=== PATIENT | male | born 1955 | race Caucasian/White ===

== ENCOUNTER 2019-05-14 19:00 | Emergency (ER) | payer OTHER, SELFPAY ==
[2019-05-14] VITALS (11 sets, daily range): BP systolic 141–171; BP diastolic 82–113; PULSE 77–102; RESP 14–21; TEMP 36.6; O2SAT 94–100; BMI 28.1
[2019-05-14] MEDS: Glucagon 1 MG/ML Syringe IV (19:44)
--- NOTE | 2019-05-14 20:06 | CON.PCM_ITS ---
Reason for Consult Date of Consultation: 05/14/19 History of Present Illness: The patient is a 63 year old M presented to the ER due to odontophagia questionable foreign body in his esophagus. Patient states that 5 PM today he had a hard shell taco and then took 4 of his pills when he went to go back in eats more of the hard shell tacos he had pain in his chest nausea and vomiting states he can swallow saliva but it does make the pain worse. Patient denies any history of GERD or reflux symptoms. Patient did have another issue with this in 2017 where he was transferred to [facility] unsure of what they did or found exactly patient thought he was told he has a hiatal hernia. Past Medical History Allergies No Known Allergies Allergy (Verified 07/20/16 20:57) Home Medications: Ambulatory Orders Medication Instructions Recorded Aspirin [Aspirin, Baby] 81 mg PO DAILY@0800 07/20/16 Atorvastatin Calcium [Lipitor] 40 mg PO QHS 07/20/16 Glipizide [Glucotrol Xl] 10 mg PO BID 07/20/16 Insulin Glargine,Hum.rec.anlog 28 unit SQ DAILY 07/20/16 [Basaglar Kwikpen U-100] Lisinopril [Zestril] 10 mg PO DAILY 07/20/16 Loratadine [Claritin] 10 mg PO DAILY 07/20/16 Metformin HCl 1,500 mg PO DAILY 07/20/16 Multivitamin [Multiple Vitamins] 1 each PO DAILY 07/20/16 Sitagliptin Phosphate [Januvia] 100 mg PO DAILY 07/20/16 Surgical History: tonsillectomy, - - Left toe surgery Psychiatric History: No pertinent psych hx Lives: Spouse/ Significant Other Smoking Status: Never smoker - *Family History Maternal History Items: No pertinent history Review of Systems Constitutional: Reports: Anorexia Eyes: Denies: Blurred vision Cardiovascular: Reports: Chest Pain Respiratory: Denies: Shortness of breath at rest Gastrointestinal: Reports: Nausea, Vomiting. Denies: Abdominal Pain - Physical Exam Vitals/I&O's: Vital Signs Temp Pulse Resp BP Pulse Ox 97.8 F 77 18 153/92 H 99 05/14/19 19:01 05/14/19 19:48 05/14/19 19:48 05/14/19 19:48 05/14/19 19:48 Oxygen Delivery Method Room Air Weight: 225 lb Body Mass Index (BMI) 28.1 General: Alert, Oriented x3, Cooperative HEENT: Atraumatic Lungs: Normal air movement Cardiovascular: Regular rate Abdomen: Soft, Non Tender, Non-Distended Extremities: No clubbing, No cyanosis, No edema Neurological: Cranial nerves II-XII grossly intact Psych/Mental Status: Normal Affect Assessment/Plan 63-year-old male with odynophagia and probable esophageal foreign body 1.I have discussed the above with the patient. I have offered the patient EGD for evaluation. I have explained the risks/benefits of the procedure and described the procedure. I have discussed the risks with the patient, including but not limited to: infection, bleeding, perforation of the GI tract requiring emergency surgery, inability to complete the procedure, requiring transfer to tertiary care facility with GI, injury to any internal organs, complications of anesthesia, etc. - the patient understands and agrees to proceed. I have answered all the patient's questions to the patient's satisfaction and the patient has no further questions. Jill Tariq M.D. Pager: [phone] [facility] [address] [place] [address], [address] [place] [address] Office: [phone]
--- NOTE | 2019-05-14 20:22 | ED.VISSUMM ---
- ER Visit Summary Date of Service: 05/14/19 Chief Complaint: Foreign body History of Present Illness: The patient is a 63 M with a foreign body in his throat. He is unable to swallow starting around 5 PM today. This was after taking his pills. He had also been eating hard tacos. This happened before and he was treated at an outside hospital. No other complaints. Physical Examination: Afebrile vital signs unremarkable. Airway intact. Unremarkable. Test Results: None indicated Emergency Department Course and Treatment: Patient treated with glucagon. He tried drinking cola through a straw. These were unsuccessful. He was discussed with Dr. noguera who will see him in the ED. Patient gave consent for procedural sedation, EGD with retrieval. He was treated with propofol 70 mg. He was placed on the monitor. No desaturations or abnormal vital signs. He tolerated this well. Patient had some irritation. Foreign body had resolved. Surgery advised follow-up in 2 to 3 weeks. PPI and Carafate for 1 week. Return for any new or worsening issues. Treatment Plan: As above Disposition: Discharge Impression: Esophageal foreign body This note was generated with [employer] dictation software. It may contain incorrect words, spelling, and punctuation that were not noted in review of the chart prior to signing ED Disposition - Plan for ED Patient: Referrals: Yariel Elliott MD [Primary Care Provider] -
[2019-05-14] MEDS: Propofol 200 MG/20 ML Vial IV BOLUS (20:39)
--- NOTE | 2019-05-14 20:39 | ED.DEP ---
ED Disposition - Plan for ED Patient: Instructions: ED Foreign Body Esophageal Rslv Prescriptions: Sucralfate [Carafate] 1 gm PO 4X/DAY #28 tab Prescription Printed Omeprazole 20 mg PO BID #14 tablet.dr Prescription Printed Referrals: Jill Tariq MD [STAFF PHYSICIAN] - 1-2 Weeks
--- NOTE | 2019-06-06 12:24 | OP.EGD_ITS ---
Patient Name: Fidel Butler Procedure Date: 05/14/2019 8:24 PM Date of : 1955 Age: 63 Procedure: Upper GI endoscopy Indications: Foreign body in the esophagus Providers: Jill Tariq MD Medicines: Monitored Anesthesia Care Patient Profile: This is a 63 year old male. Complications: No immediate complications. Procedure: Pre-Anesthesia Assessment: - Prior to the procedure, a History and Physical was performed, and patient medications and allergies were reviewed. The patient's tolerance of previous anesthesia was also reviewed. The risks and benefits of the procedure and the sedation options and risks were discussed with the patient. All questions were answered, and informed consent was obtained. Prior Anticoagulants: The patient has taken aspirin, last dose was day of procedure. ASA Grade Assessment: per ER physician. After reviewing the risks and benefits, the patient was deemed in satisfactory condition to undergo the procedure. After obtaining informed consent, the endoscope was passed under direct vision. Throughout the procedure, the patient's blood pressure, pulse, and oxygen saturations were monitored continuously. The gastroscope was introduced through the mouth, and advanced to the second part of duodenum. The upper GI endoscopy was accomplished without difficulty. The patient tolerated the procedure well. Scope In: 8:30:43 PM Scope Out: 8:33:59 PM Total Procedure Duration Time 0 hours 3 minutes 16 seconds Findings: The Z-line was found 40 cm from the incisors. Moderate erythema was found at the lower esophageal sphincter. A medium amount of food (residue) was found in the gastric fundus. The examined duodenum was normal. The cardia and gastric fundus were normal on retroflexion. A small sliding hiatal hernia was present. Impression: - Z-line, 40 cm from the incisors. - Erythema at the lower esophageal sphincter. - A medium amount of food (residue) in the stomach. - Normal examined duodenum. - Small sliding hiatal hernia. - No specimens collected. Recommendation: - Discharge patient to home. - Resume previous diet. - Use Protonix (pantoprazole) 40 mg PO daily. - Use sucralfate tablets 1 gram PO QID for 1 week. - Continue present medications. Procedure Code(s): --- Professional --- 89177, Esophagogastroduodenoscopy, flexible, transoral; diagnostic, including collection of specimen(s) by brushing or washing, when performed (separate procedure) Diagnosis Code(s): --- Professional --- K22.8, Other specified diseases of esophagus T18.108A, Unspecified foreign body in esophagus causing other injury, initial encounter CPT copyright 2017 [employer]. All rights reserved. The codes documented in this report are preliminary and upon rental boats caretaker review may be revised to meet current compliance requirements. MD Jill Brandon MD 05/14/2019 8:47:28 PM This report has been signed electronically. Number of Addenda: 0 Note Initiated On: 05/14/2019 8:24 PM
--- NOTE | 2019-06-06 12:25 | OP.CCLET_ITS ---
06/06/2019 Yariel Elliott Re : Upper GI endoscopy procedure for Fidel Herring Earl This procedure was performed on Tuesday, May 14, 2019. My impressions and recommendations are as follows: Impressions : - Z-line, 40 cm from the incisors. - Erythema at the lower esophageal sphincter. - A medium amount of food (residue) in the stomach. - Normal examined duodenum. - Small sliding hiatal hernia. - No specimens collected. Recommendations : - Discharge patient to home. - Resume previous diet. - Use Protonix (pantoprazole) 40 mg PO daily. - Use sucralfate tablets 1 gram PO QID for 1 week. - Continue present medications. My findings are described in the full procedure note, which is enclosed. If I can be of further assistance, please feel free to contact me at Doctor phone number(s): , Work: . Sincerely, MD Jill Brandon MD 05/14/2019 8:47:28 PM This report has been signed electronically.
== END 2019-05-14 21:15 | disposition home or self-care (01) ==
PROVIDERS: Surgery; Emergency Provider Emergency Medicine; PCP Family Medicine
PROC: 0DJ08ZZ Inspection of Upper Intestinal Tract, Via Natural or Artificial Opening Endoscopic (ICD-10-PCS; CPT 43235; principal; 2019-05-14 20:30)
DX: R13.10 Dysphagia, unspecified (principal); T18.108A Unspecified foreign body in esophagus causing other injury, initial encounter; K22.8 Other specified diseases of esophagus; E11.9 Type 2 diabetes mellitus without complications; I10 Essential (primary) hypertension; E78.00 Pure hypercholesterolemia, unspecified; Z79.82 Long term (current) use of aspirin; Z79.4 Long term (current) use of insulin
CPT/HCPCS: 43235; 96374; 99284; J7030; A4216; J1610

== ENCOUNTER 2020-05-22 14:57 | Outpatient (RCR) | payer OTHER, SELFPAY ==
[2019-05-14 19:01] VITALS: BMI 28.1
== END 2020-07-15 23:59 ==
LOC: IMMUN 14:57
PROVIDERS: PCP Family Medicine; Referring Provider Family Medicine; Visit Provider Family Medicine
DX: Z23 Encounter for immunization (principal)
CPT/HCPCS: 0001A; 0002A; 91300

== ENCOUNTER 2022-12-20 07:00 | Outpatient (RCR) | payer OTHER, SELFPAY ==
--- NOTE | 2022-12-03 15:01 | HP.PTEVAL ---
Patient's Visit Information Visit Information Visit Information: MYLA CONROY Jr. is a 67 year old M referred to Physical Therapy by Dr. Yariel Elliott MD with a diagnosis of Radicular pain L UE.. Date of Evaluation: 12/03/22 Physical Therapist: Etienne Jacobo, DPT, OCS, CSCS Visit Plan Frequency: 2-3x /Week Duration: 2-4 Weeks Plan: 2-3x/week for 2-4 weeks for 1. MH and STM to L UT and lev scap, DTR 2. stretch L UT and lev scap, PROM extension and retraction and mobs as needed cervical spine 3. strength posture and B RC and neck Subjective Subjective: L sided shoulder pain for long time, insidious for more than a month. Shoulder to hand, L neck. [id number] on R sided. has injury as a teen but nothing lately. Pain is fairly constant. Hard to get comfortable. Has to keep moving. No [place]. Tingling in L arm. No numbness. Sleep is interrupted as it is hard to sleep on L side. 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 Moving is better. L handed driving bothers him. Pain L shoulder, arm, neck: Pain Intensity (Out of 10): 3 Pain Intensity Range: 0, 1 and 8 Comment: 8 overworked Objective Objective: Walks I and safely back to PT I. Trasnfers I, Tends to lean R when sitting. Good balance with ambulation and standing Cervical AROM is limited in retraction mod and ext to 34 degrees and both are painful rotations ar 45 and not painful, SB 15 and not painful. Scap aROM WFL but painful L UT. shoulder and elbow and wrist AROM but L shoulder hurts slightly with LLA flexion to end range. Also end range er slightly painful max tender to touch in L UT and lev scap insertion. jumps off table slightly. reflexes 2/3 bi and tri Sensation UE WNL to gross light touch. strength is symmetrical and no myotomal problems in UE. 4/5. - c/s compression but OP ret, ext painful. L arm feels better behind head. Balance/Special Test Scores Quick DASH Score: 20.4525 Goals Goal 1:: Abolish tenderness L scap UT, lev scap Goal Time Frame: 2-4 Weeks Goal 2:: AROM cervical spine retraction to neutral and comfortable and extension to 50. Goal Time Frame: 2-4 Weeks Goal 3:: Patient feel overall pain level 80% better and manageable with HEP Goal Time Frame: 2-4 Weeks Goal 4:: quickdash score 15 or better Goal Time Frame: 2-4 Weeks Rehabilitation Potential Physical Therapy Diagnosis: Radicualr pain L ue and shoulder limiting function and comfort. Rehabilitation Potential: Fair Anticipated Interventions Patient/Client Instruction: Educate patient on: Condition and Plan of Care For the Purpose of:: To decrease pain, To increase ROM, To improve nutrient delivery to tissue and To improve muscle performance and motor function Therapeutic Exercise to Include: Strength training, Postural training, Flexibilty training, Passive ROM and Active ROM For the Purpose of:: To decrease pain, To increase ROM, To improve nutrient delivery to tissue, To improve muscle performance and motor function, To increase tolerance to activity/condition/position and To improve ability of physical actions for home/community/work/leisure Manual Therapy Techniques to Include: Petrissage, Mobilization, Passive ROM and Soft tissue mobilization For the Purpose of:: To decrease pain, To improve nutrient delivery to tissue, To improve muscle performance and motor function and To increase tolerance to activity/condition/position TENS: Yes Thermo therapy (hot pack): Yes For the Purpose of:: To decrease pain, To increase ROM and To improve nutrient delivery to tissue Text: Thank you for the opportunity to evaluate your patient. For Medicare and Medicare HMO plans, please review the plan of care and approve it. It will need to be FAXED BACK to us at [phone] for Medicare purposes. For Medicare only, by signing this I certify the plan of care. Please let me know if there are questions or concerns regarding this plan of care. Physician Signature: Date:
--- NOTE | 2022-12-20 07:21 | HP.PTREVAL ---
Re-Evaluation Intro: Dr. Yariel Elliott MD, It has been my pleasure to treat MYLA CONROY Jr. over the last 5 visits for Radicular pain L UE.. Please see the progress note below for an update on the physical therapy plan of care! Subjective Subjective: No pain over weekend maybe 02/16. Leaves raking Tuesday morning. Driving L handed. No f/u with doctor. Objective Objective/Function: 60 degrees extension is much improved. Tenderness is cervical paraspinals c67 and more medial than previously. Mild tenderness today. Pt much improved with subjective and feels like he can manage at home with massage from as massage has helped him the most. Plan Plan Plan: f/u 3 weeks if needed or call prior, Consider [facility], , US strength if pain returns. Balance/Gait/Functional tests Balance/Special Test Scores Quick DASH Score: 20.4525 Goals Goals Goal 1:: Abolish tenderness L scap UT, lev scap Goal Time Frame: 2-4 Weeks Goal Progress: Progressing Goal 2:: AROM cervical spine retraction to neutral and comfortable and extension to 50. Goal Time Frame: 2-4 Weeks Goal Progress: 60% Goal 3:: Patient feel overall pain level 80% better and manageable with HEP Goal Time Frame: 2-4 Weeks Goal Progress: Goal Met Goal 4:: quickdash score 15 or better Goal Time Frame: 2-4 Weeks Goal Progress: Progressing Anticipated Interventions Anticipated Interventions Patient/Client Instruction: Educate patient on: Condition and Plan of Care For the Purpose of:: To decrease pain, To increase ROM, To improve nutrient delivery to tissue and To improve muscle performance and motor function Therapeutic Exercise to Include: Strength training, Postural training, Flexibilty training, Passive ROM and Active ROM For the Purpose of:: To decrease pain, To increase ROM, To improve nutrient delivery to tissue, To improve muscle performance and motor function, To increase tolerance to activity/condition/position and To improve ability of physical actions for home/community/work/leisure Manual Therapy Techniques to Include: Petrissage, Mobilization, Passive ROM and Soft tissue mobilization For the Purpose of:: To decrease pain, To improve nutrient delivery to tissue, To improve muscle performance and motor function and To increase tolerance to activity/condition/position TENS: Yes Thermo therapy (hot pack): Yes For the Purpose of:: To decrease pain, To increase ROM and To improve nutrient delivery to tissue Re-Evaluation Ending Re-evaluation ending: Please do not hesitate to contact me at [phone] by phone or if you have questions or concerns regarding this new plan of care! Sincerely, Etienne Jacobo, DPT, OCS, CSCS
--- NOTE | 2023-02-17 13:17 | HP.PT.NRP ---
Patient Information Patient Information: MYLA CONROY Jr. was seen in my office for initial evaluation on 12/03/22. The following Plan of Care was established for this patient: POC Established Initial Frequency: 2-3x /Week Initial Duration: 2-4 Weeks Anticipated Interventions Patient/Client Instruction: Educate patient on: Condition and Plan of Care For the Purpose of:: To decrease pain, To increase ROM, To improve nutrient delivery to tissue and To improve muscle performance and motor function Therapeutic Exercise to Include: Strength training, Postural training, Flexibilty training, Passive ROM and Active ROM For the Purpose of:: To decrease pain, To increase ROM, To improve nutrient delivery to tissue, To improve muscle performance and motor function, To increase tolerance to activity/condition/position and To improve ability of physical actions for home/community/work/leisure Manual Therapy Techniques to Include: Petrissage, Mobilization, Passive ROM and Soft tissue mobilization For the Purpose of:: To decrease pain, To improve nutrient delivery to tissue, To improve muscle performance and motor function and To increase tolerance to activity/condition/position TENS: Yes Thermo therapy (hot pack): Yes For the Purpose of:: To decrease pain, To increase ROM and To improve nutrient delivery to tissue Last Seen Last Seen: This patient was last seen in our office 12/20/22. Pertinent comments regarding their Physical therapy will appear below: Pt seen 5 visits of POC and was 90% better. He was to f/u 3 weeks later but did not schedule or attend. At this point, it has been over 6 weeks and I will discontinue from my care. At this point I will be discontinuing this patient from physical therapy. I would be happy to see this patient again in the future if found appropriate by the physician. Thank you! Etienne Jacobo, DPT, OCS, CSCS Balance/Gait/Functional tests Balance/Special Test Scores Quick DASH Score: [phone]
== END 2022-12-20 19:00 | disposition home or self-care (01) ==
LOC: PT 07:00
PROVIDERS: PCP Family Medicine; Referring Provider Family Medicine; Visit Provider Family Medicine
DX: M79.602 Pain in left arm
CPT/HCPCS: 97110; 97140; 97161; 97530

== ENCOUNTER 2023-01-17 11:10 | Emergency (ER) | payer OTHER, SELFPAY ==
[2023-01-17 11:11] VITALS: BP 123/86; PULSE 72; RESP 18; TEMP 35.1; O2SAT 100; BMI 26.9
--- NOTE | 2023-01-17 11:44 | RAD_ITS ---
STUDY: X-RAY - LEFT KNEE REASON FOR EXAM: Male, 67 years old. Pain TECHNIQUE: 4 view(s) of the knee. COMPARISON: None. FINDINGS: Normal visualized distal femur. Normal visualized proximal tibia and fibula. Normal proximal tibiofibular articulation. Normal medial femorotibial compartment. Normal lateral femorotibial compartment. Normal patellofemoral articulation. The soft tissue structures are unremarkable. RAD/Knee 4 or More Views IMPRESSION: Normal x-ray examination of the knee. Electronically Signed: Bridger Ortiz MD at 12:40 EST ,
--- NOTE | 2023-01-17 11:44 | RAD_ITS ---
STUDY: X-RAY - LEFT HUMERUS REASON FOR EXAM: Male, 67 years old. Pain following recent fall. TECHNIQUE: 3 view(s) of the humerus. COMPARISON: None. FINDINGS: Normal visualized humerus. There is no demonstrated fracture or osseous destructive process. There is no demonstrated soft tissue abnormality. RAD/Humerus min 2 Views IMPRESSION: Normal x-ray examination of the humerus. Electronically Signed: Bridger Ortiz MD at 12:37 EST ,
--- NOTE | 2023-01-17 11:46 | RAD_ITS ---
STUDY: X-RAY - LEFT SHOULDER REASON FOR EXAM: Male, 67 years old. Pain following a fall. TECHNIQUE: 4 view(s) of the shoulder. COMPARISON: None. FINDINGS: Normal glenohumeral articulation. There is degenerative arthrosis of the acromioclavicular joint without inferior osseous spur formation. Normal acromion. There is a 1.5 cm x 0.7 cm well-corticated bony fragment just inferior to the left acromion clavicular joint. This most likely represents an old avulsion fracture. Normal humeral head and visualized proximal humerus. The soft tissue structures are unremarkable. Normal visualized pulmonary apex. RAD/Shoulder min 2 Views IMPRESSION: Mild degree of the degenerative changes of the acromioclavicular joint. Findings suggestive of an old avulsion fracture along the undersurface of the left acromioclavicular joint. Electronically Signed: Bridger Ortiz MD at 12:39 EST ,
--- NOTE | 2023-01-17 11:46 | EX.ED.DYSGE1 ---
HPI <JOSE ALFREDO Arnold - Last Filed: 01/17/23 13:11> History of Present Illness Chief Complaint: Fall Narrative Narrative: Patient tripped on the sidewalk and fell catching himself with his left arm and on both knees. His knees are scraped and painful but he was able to stand and ambulate. Denies head injury or LOC. He states he feels nauseated now. Triage note states he is confused but family and the patient deny this. PFSH <JOSE ALFREDO Arnlod - Last Filed: 01/17/23 13:11> [facility] Home Medications aspirin 81 mg chewable tablet 81 mg PO DAILY@0800 07/20/16 [History Last Taken Unknown] atorvastatin 40 mg tablet 40 mg PO QHS 07/20/16 [History Last Taken Unknown] glipizide 10 mg tablet, extended release 24 hr (Glucotrol XL) 10 mg PO BID 07/20/16 [History Last Taken Unknown] insulin glargine 100 unit/mL (3 mL) subcutaneous pen (Basaglar KwikPen U-100 Insulin) 28 unit SQ DAILY 07/20/16 [History Last Taken Unknown] lisinopril 10 mg tablet 10 mg PO DAILY 07/20/16 [History Last Taken Unknown] loratadine 10 mg tablet (Allergy Relief (loratadine)) 10 mg PO DAILY 07/20/16 [History Last Taken Unknown] metformin 500 mg tablet 1,500 mg PO DAILY 07/20/16 [History Last Taken Unknown] multivitamin (Multiple Vitamins tablet) 1 ea PO DAILY 07/20/16 [History Last Taken Unknown] sitagliptin phosphate 100 mg tablet (Januvia) 100 mg PO DAILY 07/20/16 [History Last Taken Unknown] omeprazole 20 mg tablet,delayed release 20 mg PO BID ##14 05/14/19 [Rx Last Taken Unknown] sucralfate 1 gram tablet 1 gm PO 4X/DAY #28 tabs 05/14/19 [Rx Last Taken Unknown] Allergy/AdvReac Type Severity Reaction Status Date / Time No Known Allergies Allergy Verified 01/17/23 11:11 Social History Smoking Status: Never smoker ROS <JOSE ALFREDO Arnold - Last Filed: 01/17/23 13:11> ROS ED ROS Narrative CVS: Negative for chest pain, syncope. Respiratory: Negative for shortness of breath. GI: Positive for nausea, negative for vomiting. Neuro: Negative for headache, motor/sensory dysfunction. Skin: Positive for knee abrasions. EXAM <JOSE ALFREDO Arnold - Last Filed: 01/17/23 13:11> Physical Exam Narrative Exam Narrative: CONST: Patient sitting in no acute distress. EYES: Normal inspection. Head: Head atraumatic normocephalic. NECK: Normal inspection. No midline spinal tenderness, no step off or crepitus. RESP: No respiratory distress, CTAB. Chest wall nontender. CVS: Regular rate and rhythm, no murmur, no gallop. Back: Normal inspection, no midline tenderness. SKIN: Small abrasions on both knees. EXTREMITIES: Normal appearance, tender to palpation left proximal humerus/deltoid area, no deformity or crepitus. Patient will not move the shoulder due to pain but he has full passive range of motion. 5/5 strength in elbow flexion/extension wrist and certified wellness program coordinator strength. Normal motor and sensory function median radial and ulnar distributions. No tenderness of right upper extremity. Both knees have small abrasions, normal extension, negative anterior/posterior drawer and varus and valgus testing, normal strength and sensation, 2+ DP pulses. NEURO: Oriented x4. PSYCH: Normal affect. Const Vital Signs: 01/17/23 11:11 01/17/23 11:32 Temperature 95.2 F L Temperature Source Temporal Pulse Rate 72 Respiratory Rate 18 Respiratory Effort Normal Respiratory Depth Normal Respiratory Pattern Normal Blood Pressure 123/86 H Blood Pressure Mean 98 Pulse Ox 100 Oxygen Delivery Method Room Air Room Air <Dr. Be Stallworth MD - Last Filed: 01/18/23 07:21> Physical Exam Const Vital Signs: 01/17/23 11:11 01/17/23 11:32 Temperature 95.2 F L Temperature Source Temporal Pulse Rate 72 Respiratory Rate 18 Respiratory Effort Normal Respiratory Depth Normal Respiratory Pattern Normal Blood Pressure 123/86 H Blood Pressure Mean 98 Pulse Ox 100 Oxygen Delivery Method Room Air Room Air MDM <JOSE ALFREDO Arnold - Last Filed: 01/17/23 13:11> MDM MDM Narrative Medical decision making narrative: History gathered from: Patient and spouse Patient had mechanical fall during his left shoulder and has bilateral knee abrasions. No head trauma. He is awake alert with GCS of 15. Other than the abrasions he has no external evidence of trauma. He is tender over left anterior shoulder and proximal humerus. No deformity or evidence of dislocation. Active range of motion limited by pain but passive range of motion is full. Neurovascularly intact. Knee joint stable with normal extension. X-rays of the left upper extremity and bilateral knees are negative. He is able to ambulate. Patient advised on [id number] analgesia and if his shoulder does not improve to see his primary care for reevaluation in 7 to 10 days. He was discharged in stable condition. Differential: Shoulder sprain versus fracture I have personally performed a face to face assessment of the patient and have reviewed the TERA Note. I performed a substantive portion of the visit including all aspects of the following. My luke findings include: History is remarkable for patient tripping. He landed on his knees and left shoulder. He is right-hand dominant. He has pain with movement of his left shoulder. He also complains of pain right and left knee. Will check tetanus status. Patient denies headache. He denies head trauma. He is not on an anticoagulant. He is on a baby aspirin a day. Exam is Head is atraumatic normocephalic. Trachea is midline. There is no midline posterior neck pain. He has full active range of motion. There is pain ovation over the proximal humerus. No pain ovation over the clavicle or AC joint. Axillary, median, radial and ulnar function intact. Radial pulses palpable. Heart lung exam is unremarkable. There is no pain ovation of the pelvis. Patient has abrasion of the right and left knee. There is slight swelling noted to the left knee. He has full active range of motion. No laxity varus valgus stress testing. Equivocal joint line tenderness on the left. No joint line tenderness on the right. Varus valgus stress testing reveals no laxity. Quinn's test was negative bilaterally. Modified Nilda's test was undetermined on the left because of joint line pain but there is no click either side. Medical Decision Making x-ray was obtained to evaluate for contusion versus fracture. Other additions or changes: 4 view x-ray of the right knee independent reviewed interpreted by me at 1211. There is arthritic changes. There is no evidence of effusion, fracture. 4 view of the left knee is unremarkable. This was apparently reviewed interpreted by me. There is no evidence of fracture, effusion or subluxation. Three-view x-ray of the left shoulder reveals no fracture, subluxation dislocation. There is calcification in the proximity of the supraspinatus/rotator cuff insertion site. Otherwise there is no acute abnormality noted. 2 view x-ray of the left humerus reveals no abnormality per my independent rotation. Radiography Diagnostic Testing: Clinical Impression(s) from Imaging Studies Humerus X-Ray 01/17/23 11:44 IMPRESSION: Normal x-ray examination of the humerus. Electronically Signed: Bridger Ortiz MD at 12:37 EST , Knee X-Ray 01/17/23 11:44 IMPRESSION: Normal x-ray examination of the knee. Electronically Signed: Bridger Ortiz MD at 12:40 EST , Shoulder X-Ray 01/17/23 11:46 IMPRESSION: Mild degree of the degenerative changes of the acromioclavicular joint. Findings suggestive of an old avulsion fracture along the undersurface of the left acromioclavicular joint. Electronically Signed: Bridger Ortiz MD at 12:39 EST , Knee X-Ray 01/17/23 11:55 IMPRESSION: No acute abnormality is seen. Electronically Signed: Bridger Ortiz MD at 12:40 EST , <Dr. Be Stallworth MD - Last Filed: 01/18/23 07:21> [facility] MDM Narrative Medical decision making narrative: I have personally performed a face to face assessment of the patient and have reviewed the TERA Note. I performed a substantive portion of the visit including all aspects of the following. My luke findings include: History is remarkable for patient tripping. He landed on his knees and left shoulder. He is right-hand dominant. He has pain with movement of his left shoulder. He also complains of pain right and left knee. Will check tetanus status. Patient denies headache. He denies head trauma. He is not on an anticoagulant. He is on a baby aspirin a day. Exam is Head is atraumatic normocephalic. Trachea is midline. There is no midline posterior neck pain. He has full active range of motion. There is pain ovation over the proximal humerus. No pain ovation over the clavicle or AC joint. Axillary, median, radial and ulnar function intact. Radial pulses palpable. Heart lung exam is unremarkable. There is no pain ovation of the pelvis. Patient has abrasion of the right and left knee. There is slight swelling noted to the left knee. He has full active range of motion. No laxity varus valgus stress testing. Equivocal joint line tenderness on the left. No joint line tenderness on the right. Varus valgus stress testing reveals no laxity. Quinn's test was negative bilaterally. Modified Nilda's test was undetermined on the left because of joint line pain but there is no click either side. Medical Decision Making x-ray was obtained to evaluate for contusion versus fracture. Other additions or changes: 4 view x-ray of the right knee independent reviewed interpreted by me at 1211. There is arthritic changes. There is no evidence of effusion, fracture. 4 view of the left knee is unremarkable. This was apparently reviewed interpreted by me. There is no evidence of fracture, effusion or subluxation. Three-view x-ray of the left shoulder reveals no fracture, subluxation dislocation. There is calcification in the proximity of the supraspinatus/rotator cuff insertion site. Otherwise there is no acute abnormality noted. 2 view x-ray of the left humerus reveals no abnormality per my independent rotation. Radiography Diagnostic Testing: Clinical Impression(s) from Imaging Studies Humerus X-Ray 01/17/23 11:44 IMPRESSION: Normal x-ray examination of the humerus. Electronically Signed: Bridger Ortiz MD at 12:37 EST , Knee X-Ray 01/17/23 11:44 IMPRESSION: Normal x-ray examination of the knee. Electronically Signed: Bridger Ortiz MD at 12:40 EST Reading Location ID and State: [facility] / [place] , Service support , Shoulder X-Ray 01/17/23 11:46 IMPRESSION: Mild degree of the degenerative changes of the acromioclavicular joint. Findings suggestive of an old avulsion fracture along the undersurface of the left acromioclavicular joint. Electronically Signed: Bridger Ortiz MD at 12:39 EST Reading Location ID and State: [facility] / [place] , Service support , Knee X-Ray 01/17/23 11:55 IMPRESSION: No acute abnormality is seen. Electronically Signed: Bridger Ortiz MD at 12:40 EST Reading Location ID and State: [facility] / [place] , Service support , Discharge Plan Triage Chief Complaint: Fall ED Midlevel Provider: Sharon Mcintosh ED Provider: Be Stallworth Dx/Rx/DC Orders Clinical Impression: Abrasion of both knees, Sprain of left shoulder, Injury due to fall Instructions: ED Abrasion, ED Shoulder Sprain Prescriptions: No Action multivitamin [Multiple Vitamins] 1 EACH tablet 1 ea PO DAILY atorvastatin 40 MG tablet 40 mg PO QHS metformin 500 MG tablet 1,500 mg PO DAILY glipizide [Glucotrol XL] 10 MG tablet extended release 24hr 10 mg PO BID lisinopril 10 MG tablet 10 mg PO DAILY Patient Comments: aspirin 81 MG tablet,chewable 81 mg PO DAILY@0800 loratadine [Allergy Relief (loratadine)] 10 MG tablet 10 mg PO DAILY sitagliptin phosphate [Januvia] 100 MG tablet 100 mg PO DAILY insulin glargine [Basaglar KwikPen U-100 Insulin] 100 UNIT/ML insulin pen 28 unit SQ DAILY sucralfate 1 GM tablet 1 gm PO 4X/DAY Qty: 28 0RF omeprazole 20 MG tablet,delayed release (DR/EC) 20 mg PO BID Qty: 14 0RF Primary Care Provider: Yariel Elliott Referrals: Yariel Elliott MD [Primary Care Provider] - Activity Restrictions/Additional Instructions: Ice and take Tylenol as needed. If your left arm pain is not improving in 7 to 10 days please see your primary care doctor for reevaluation. Disposition Disposition: Home, Self Care Discharge Date/Time: 01/17/23 13:27
--- NOTE | 2023-01-17 11:55 | RAD_ITS ---
STUDY: X-RAY - RIGHT KNEE REASON FOR EXAM: Male, 67 years old. Pain following injury. TECHNIQUE: 4 view(s) of the knee. COMPARISON: None. FINDINGS: Normal visualized distal femur. 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 Normal proximal tibiofibular articulation. Normal medial femorotibial compartment. Normal lateral femorotibial compartment. Normal patellofemoral articulation. The soft tissue structures are unremarkable. RAD/Knee 4 or More Views IMPRESSION: No acute abnormality is seen. Electronically Signed: Bridger Ortiz MD at 12:40 EST ,
== END 2023-01-17 13:27 | disposition home or self-care (01) ==
PROVIDERS: Emergency Provider Emergency Medicine; PCP Family Medicine; Referring Provider Emergency Medicine; Visit Provider Emergency Medicine
DX: S80.211A Abrasion, right knee, initial encounter (principal); W10.1XXA Fall (on)(from) sidewalk curb, initial encounter; S80.212A Abrasion, left knee, initial encounter; S43.402A Unspecified sprain of left shoulder joint, initial encounter
CPT/HCPCS: 73030; 73060; 73564; 99282

== ENCOUNTER 2023-06-28 16:14 | Emergency (ER) | payer OTHER, SELFPAY ==
[2023-06-28 16:42] VITALS: BP 133/69; PULSE 84; RESP 18; TEMP 36.3; O2SAT 98; BMI 25.6
[2023-06-28 17:07] VITALS: BP 127/87; PULSE 88; RESP 18; O2SAT 99
[2023-06-28 17:12] VITALS: BP 130/81; BP 134/80; BP 135/77; PULSE 88; PULSE 92
[2023-06-28 17:28] LABS: Absolute Lymphocyte Count 2.27 X10^3/uL (0.83-4.51); Absolute Neutrophil Count 5.2 X10^3/uL (2.0-7.7); Basophil# 0.06 X10^3/uL; Basophil% 0.6 % (0-1); Eosinophil# 0.41 X10^3/uL; Eosinophils% 4.4 % (0-5); Hematocrit 43.6 % (40-54); Hemoglobin 14.4 g/dL (13.0-16.5); Lymphocyte # 2.27 X10^3/ul (0.83-4.51); Lymphocyte % 24.4 % (19-41); Mean Corpuscular Hgb 28.3 pg (27.0-32.0); Mean Corpuscular Volume 85.7 fL (80-94); Mean Platelet Vol. 9.9 fl (6.2-12.0); Monocyte# 1.32 X10^3/uL; Monocyte% 14.2 % (0-10); NRBC Flagged by Analyzer 0 % (0-5); Neutrophil # 5.18 X10^3/uL (2.7-7.7); Neutrophil % 55.5 % (47-70); Platelet Count 239 K/mm3 (150-450); RBC Distribution Width CV 12.7 % (11.6-14.6); RBC Distribution Width SD 39.3 fl (35.1-43.9); Red Blood Count 5.09 M/mm3 (4.6-6.2); White Blood Count 9.3 K/mm3 (4.4-11.0)
--- NOTE | 2023-06-28 17:35 | RAD_ITS ---
STUDY: X-RAY CHEST REASON FOR EXAM: Male, 67 years old. chest pain TECHNIQUE: AP portable COMPARISON: None. FINDINGS: The lungs are clear and expanded. There is no demonstrated pleural abnormality. Normal size heart. Normal mediastinum and francisco. Normal visualized pulmonary arteries. Normal visualized aortic arch and descending thoracic aorta. Dorsal spine demonstrates mild spondylosis. Normal visualized ribs, clavicles, and shoulders. There is no demonstrated abnormality of the visualized soft tissue structures of the upper abdomen. RAD/Chest 1 View (Portable) IMPRESSION: No acute cardiopulmonary pathology Electronically Signed: Jabier John MD at 17:50 EDT ,
[2023-06-28 17:51] LABS: Anion Gap 11 (5-15); BUN 28 mg/dL (7-18); BUN/Creat Ratio 12.7 RATIO (10-20); Calcium,Total 9.1 mg/dL (8.5-10.1); Chloride 98 mmol/L (98-107); Creatinine, Serum 2.21 mg/dL (0.70-1.30); EST Glomerular Filtration Rate 32 mL/min (>60); Est Glom Filt Rate - Afr Amer 38 mL/min (>60); Glucose 99 mg/dL (74-106); Potassium 3.3 mmol/L (3.5-5.1); Sodium Level 135 mmol/L (136-145); Troponin-I HS 42 pg/mL (3.0-78.0)
[2023-06-28 17:56] LABS: BNP,B-Type NATRIURETIC PEPTIDE 22.5 pg/mL (0-100)
[2023-06-28] MEDS: 0.9% Normal Saline (1000mL) 1,000 ML 999 ML IV ×2 (18:17→19:14)
--- NOTE | 2023-06-28 18:49 | EX.ED.DYSGE1 ---
HPI History of Present Illness Chief Complaint: Syncope Narrative Narrative: 67-year-old male presenting after episode of near syncope. He states that he stood up and was lightheaded tried to catch his bearings when he started to walk felt he was in a pass out so he kneeled down. He states he did not go all the way out. He denies hitting his head. Denies any acute onset headache. Denies chest pain or shortness of breath. 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 He was drinking plenty of fluids. Patient states he has been on lisinopril 10 mg for a long time. It was noted that his blood pressure systolically was in the 140s and about a month ago he was started on 20 mg lisinopril. On the first of the month he was seen by his doctors nurse practitioner who ordered him HCTZ 12.5 mg daily but he did not start this until the . Initially his thought he was only supposed to be on the HCTZ so they were holding the lisinopril because they thought it was a lot of medication. They texted with the nurse caring for them and she recommended that he take both and he started taking both of them yesterday and today is lightheaded. [facility] Medical History GERD (gastroesophageal reflux disease) Hiatal hernia Diabetes Hypertension Home Medications ?Medication ?Instructions ?Recorded ?Last Taken ?Type aspirin 81 mg chewable tablet 81 mg PO DAILY@0800 07/20/16 Unknown History atorvastatin 40 mg tablet 40 mg PO QHS 07/20/16 Unknown History glipizide 10 mg tablet, extended 10 mg PO BID 07/20/16 Unknown History release 24 hr (Glucotrol XL) insulin glargine 100 unit/mL (3 28 unit SQ DAILY 07/20/16 Unknown History mL) subcutaneous pen (Basaglar KwikPen U-100 Insulin) lisinopril 10 mg tablet 10 mg PO DAILY 07/20/16 Unknown History loratadine 10 mg tablet (Allergy 10 mg PO DAILY 07/20/16 Unknown History Relief (loratadine)) metformin 500 mg tablet 1,500 mg PO DAILY 07/20/16 Unknown History multivitamin (Multiple Vitamins 1 ea PO DAILY 07/20/16 Unknown History tablet) sitagliptin phosphate 100 mg 100 mg PO DAILY 07/20/16 Unknown History tablet (Januvia) omeprazole 20 mg tablet,delayed 20 mg PO BID ##14 05/14/19 Unknown Rx release sucralfate 1 gram tablet 1 gm PO 4X/DAY #28 tabs 05/14/19 Unknown Rx amlodipine 5 mg tablet 5 mg PO DAILY #30 tabs 06/28/23 Unknown Rx Allergy/AdvReac Type Severity Reaction Status Date / Time No Known Allergies Allergy Verified 06/28/23 16:45 Social History Smoking Status: Never smoker ROS ROS ED Constitutional Constitutional ED: Denies chills, fever(s) or sweats Eyes Eyes: Denies blurry vision or change in vision ENT ENT ED: Denies ear pain or sore throat Cardiovascular Cardiovascular: Denies chest pain, palpitations or racing heartbeat Respiratory/Chest Respiratory/Chest: Denies cough, dyspnea or sputum Gastrointestinal Gastrointestinal: Denies abdominal pain, constipation, diarrhea, nausea or vomiting Genitourinary Genitourinary ED: Denies dysuria, hematuria or urinary frequency Musculoskeletal Musculoskeletal: Denies arthralgias, myalgias or neck pain Integumentary Denies abscess, Abrasions or rash Neurologic Neurologic: Denies headache(s), paresthesias or weakness Psychiatric Psychiatric: Denies anxiety, depression, suicidal ideation or suicidal thoughts Endocrine Endocrinology: Denies polydipsia or polyuria EXAM Physical Exam Const Vital Signs: 06/28/23 16:42 06/28/23 17:07 06/28/23 17:08 Temperature 97.3 F L Temperature Source Temporal Pulse Rate 84 88 Pulse Rate [Lying] Pulse Rate [Sitting (for 1 minute prior to obtaining)] Pulse Rate [Standing (for 1 minute prior to obtaining)] Respiratory Rate 18 18 Respiratory Pattern Blood Pressure 133/69 H 127/87 H Blood Pressure [Lying] Blood Pressure [Sitting (for 1 minute prior to obtaining)] Blood Pressure [Standing (for 1 minute prior to obtaining)] Blood Pressure Mean 90 100 Blood Pressure Mean [Lying] Blood Pressure Mean [Sitting (for 1 minute prior to obtaining)] Blood Pressure Mean [Standing (for 1 minute prior to obtaining)] Pulse Ox 98 99 Oxygen Delivery Method Room Air Room Air Room Air 06/28/23 17:08 06/28/23 17:12 06/28/23 17:25 Temperature Temperature Source Pulse Rate Pulse Rate [Lying] 88 Pulse Rate [Sitting (for 1 minute prior to obtaining)] 88 Pulse Rate [Standing (for 1 minute prior to obtaining)] 92 Respiratory Rate Respiratory Pattern Normal Blood Pressure Blood Pressure [Lying] 135/77 H Blood Pressure [Sitting (for 1 minute prior to obtaining)] 134/80 H Blood Pressure [Standing (for 1 minute prior to obtaining)] 130/81 H Blood Pressure Mean Blood Pressure Mean [Lying] 96 Blood Pressure Mean [Sitting (for 1 minute prior to obtaining)] 98 Blood Pressure Mean [Standing (for 1 minute prior to obtaining)] 97 Pulse Ox Oxygen Delivery Method Room Air 06/28/23 19:00 06/28/23 20:34 Temperature 97.8 F Temperature Source Pulse Rate 91 97 Pulse Rate [Lying] Pulse Rate [Sitting (for 1 minute prior to obtaining)] Pulse Rate [Standing (for 1 minute prior to obtaining)] Respiratory Rate 20 H 21 H Respiratory Pattern Blood Pressure 148/90 H 138/77 H Blood Pressure [Lying] Blood Pressure [Sitting (for 1 minute prior to obtaining)] Blood Pressure [Standing (for 1 minute prior to obtaining)] Blood Pressure Mean 106 97 Blood Pressure Mean [Lying] Blood Pressure Mean [Sitting (for 1 minute prior to obtaining)] Blood Pressure Mean [Standing (for 1 minute prior to obtaining)] Pulse Ox 99 98 Oxygen Delivery Method Positive well nourished General Appearance ED: NAD HEENT Reports moist mucous membranes Eyes PERRL and EOMs intact bilaterally Neck no lymphadenopathy Chest Wall inspection of chest normal and palpation of chest normal Resp normal respiratory effort and clear to auscultation bilaterally Cardio regular rate and regular rhythm MDM MDM MDM Narrative Medical decision making narrative: Patient presenting with near syncope and reports that he has recently had some medication changes. He is currently on lisinopril 20 mg and HCTZ 0.5 mg. He took them both for the first time yesterday. He reports an episode of near syncope. Differential includes dysrhythmia, ACS, dehydration, anemia, electrolyte abnormalities. CBC was obtained to assess white blood cell count, hemoglobin, platelets. BMP to assess renal function, electrolytes, glucose. High-sensitivity troponin to assess for ischemia. EKG as well. This x-ray will be obtained as part of a syncope workup. Patient was given 2 L of IV fluids. CBC shows normal white blood cell count 9.3. Hemoglobin 14.4. Platelets are 239. Renal function is abnormal today. His creatinine is 2.21 and his baseline in March was 0.79 which the patient was able to bring up on his phone. High-sensitivity troponin 42. BNP 22.5. EKG sinus rhythm at 90 bpm without sign of ischemia on my interpretation. Chest x-ray shows no acute process on my interpretation. Orthostatic vital signs were normal. Patient's potassium was slightly low today so he was given 40 mill equivalents of potassium. I discussed the case with Dr. Yeh who is on-call for his physician. She states that she will try to have the office reach out to him to come in tomorrow. She recommended that I discontinue his lisinopril and HCTZ and put him on 5 mg of amlodipine which he will start tomorrow. Patient was amenable to this. Impression: 1. Acute kidney injury 2. Near syncope 3. Hypokalemia Lab Data Attestation: I reviewed the patient's lab results. Labs: Laboratory Results - last 24 hr 06/28/23 17:05 WBC 9.3 RBC 5.09 Hgb 14.4 Hct 43.6 MCV 85.7 MCH 28.3 MCHC 33.0 RDW Std Deviation 39.3 RDW Coeff of Emily 12.7 Plt Count 239 MPV 9.9 Immature Gran % (Auto) 0.900 Neut % (Auto) 55.5 Lymph % (Auto) 24.4 [place]ackelford % (Auto) 14.2 H Eos % (Auto) 4.4 Baso % (Auto) 0.6 Absolute Neuts (auto) 5.2 Absolute Lymphs (auto) 2.27 Nucleated RBC % 0 Sodium 135 L Potassium 3.3 L Chloride 98 Carbon Dioxide 26.0 Anion Gap 11 BUN 28 H Creatinine 2.21 H Estim Creat Clear Calc 37.70 Est GFR (MDRD) Af Amer 38 L Est GFR (MDRD) Non-Af 32 L BUN/Creatinine Ratio 12.7 Glucose 99 Calcium 9.1 Troponin I High Sens 42 B-Natriuretic Peptide 22.5 Radiography Diagnostic Testing: Clinical Impression(s) from Imaging Studies Chest X-Ray 06/28/23 17:35 IMPRESSION: No acute cardiopulmonary pathology Electronically Signed: Jabier John MD at 17:50 EDT Reading Location ID and State: [address] [place] [address] Tel , Service support , Discharge Plan Triage Chief Complaint: Syncope ED Provider: Mark Emery Dx/Rx/DC Orders Instructions: Acute Kidney Failure Dc, ED Hypokalemia Prescriptions: New amlodipine 5 mg tablet 5 mg PO DAILY Qty: 30 0RF No Action multivitamin [Multiple Vitamins] 1 EACH tablet 1 ea PO DAILY atorvastatin 40 MG tablet 40 mg PO QHS metformin 500 MG tablet 1,500 mg PO DAILY glipizide [Glucotrol XL] 10 MG tablet extended release 24hr 10 mg PO BID lisinopril 10 MG tablet 10 mg PO DAILY Patient Comments: aspirin 81 MG tablet,chewable 81 mg PO DAILY@0800 loratadine [Allergy Relief (loratadine)] 10 MG tablet 10 mg PO DAILY sitagliptin phosphate [Januvia] 100 MG tablet 100 mg PO DAILY insulin glargine [Basaglar KwikPen U-100 Insulin] 100 UNIT/ML insulin pen 28 unit SQ DAILY sucralfate 1 GM tablet 1 gm PO 4X/DAY Qty: 28 0RF omeprazole 20 MG tablet,delayed release (DR/EC) 20 mg PO BID Qty: 14 0RF Primary Care Provider: Yariel Elliott Referrals: Yariel Elliott MD [Primary Care Provider] - Print Language: Czech Disposition Disposition: Home, Self Care Discharge Date/Time: 06/28/23 20:34
[2023-06-28 19:00] VITALS: BP 148/90; PULSE 91; RESP 20; O2SAT 99
[2023-06-28] MEDS: Potassium Chloride Oral Tablet 20 MEQ 40 MEQ PO (19:12)
[2023-06-28 20:34] VITALS: BP 138/77; PULSE 97; RESP 21; TEMP 36.6; O2SAT 98
== END 2023-06-28 20:34 | disposition home or self-care (01) ==
PROVIDERS: Emergency Provider Student in an Organized Health Care Education/Training Program; PCP Family Medicine; Visit Provider Student in an Organized Health Care Education/Training Program
DX: R55 Syncope and collapse (principal); E11.9 Type 2 diabetes mellitus without complications; Z79.4 Long term (current) use of insulin; N17.9 Acute kidney failure, unspecified; E87.6 Hypokalemia; I10 Essential (primary) hypertension; Z79.899 Other long term (current) drug therapy; Z79.82 Long term (current) use of aspirin; Z79.84 Long term (current) use of oral hypoglycemic drugs; K21.9 Gastro-esophageal reflux disease without esophagitis
CPT/HCPCS: 71045; 80048; 83880; 84484; 85025; 93005; 99284; J7030